=== PATIENT | male | born 1985 | race Native Hawaiian/Other Pacific Islander ===

== ENCOUNTER 2016-11-10 05:40 | Outpatient (CLI) | payer OTHER | END 2016-11-10 05:59 | disposition short-term general hospital (02) | LOC: AMB 05:40 | DX: R07.81 Pleurodynia (principal) | CPT/HCPCS: A0425; A0429 ==

== ENCOUNTER 2016-11-10 06:03 | Emergency (ER) | payer OTHER ==
[~2016-11-10] VITALS: Ht 170.2 cm; Wt 68.0 kg
[2016-11-10 06:05] VITALS: BP 126/81; TEMP 97.8
== END 2016-11-10 06:58 | disposition home or self-care (01) ==
LOC: ED 06:03
DX: R07.89 Other chest pain (principal)
CPT/HCPCS: 81000; 99281